=== PATIENT | female | born 1970 | race Caucasian/White ===

== ENCOUNTER 2022-08-30 13:07 | Observation (INO) | payer MEDICARE, OTHER ==
[2022-08-30 13:42] LABS: Basophils # (A) 0.1 k/uL (0-0.2); Basophils % (A) 1 %; Eosinophils # (A) 0.2 k/uL (0-0.7); Eosinophils % (A) 3 %; HCT 43.7 % (34.0-46.0); HGB 14.6 gm/dL (11.4-16.0); Lymphocytes # (A) 2.3 k/uL (1.0-4.8); Lymphocytes % (A) 34 %; MCH 30.8 pg (25.0-35.0); MCHC 33.4 g/dL (31.0-37.0); MCV 92.2 fL (80.0-100.0); Mean Platelet Volume 8.7; Monocytes # (A) 0.4 k/uL (0-1.0); Monocytes % (A) 6 %; Neutrophils # (A) 3.7 k/uL (1.3-7.7); Neutrophils % (A) 54 %; Platelet Count 404 k/uL (150-450); RBC 4.74 m/uL (3.80-5.40); WBC 6.9 k/uL (3.8-10.6)
--- NOTE | 2022-08-30 13:42 | ED ---
Chest Pain HPI - General Chief Complaint: Chest Pain Stated Complaint: Chest Pain Time Seen by Provider: 08/30/22 13:21 Source: patient, EMS, RN notes reviewed Mode of arrival: EMS Limitations: no limitations - History of Present Illness Initial Comments: 51-year-old female presents emergency Department with chief complaint of chest pain, shortness breath. Patient states that she's had PE in the past. She has an outburst currently. She states her lungs feel very heavy. Patient denies any history of hypertension hyperlipidemia and she does have history of asthma. No history of CHF she does see cardiology. No diaphoretic episodes. Patient states pain started around 2 AM. - Related Data Home Medications Medication Instructions Recorded Confirmed ALPRAZolam [Xanax] 0.5 mg PO BID 08/30/22 08/30/22 Albuterol Inhaler [Ventolin Hfa 2 puff INHALATION RT-Q6H PRN 08/30/22 08/30/22 Inhaler] Apixaban [Eliquis] 5 mg PO BID 08/30/22 08/30/22 Omeprazole 20 mg PO DAILY PRN 08/30/22 08/30/22 Pregabalin [Lyrica] 100 mg PO BID 08/30/22 08/30/22 Allergies Allergy/AdvReac Type Severity Reaction Status Date / Time No Known Allergies Allergy Verified 08/30/22 13:45 Review of Systems ROS Statement: Those systems with pertinent positive or pertinent negative responses have been documented in the HPI. ROS Other: All systems not noted in ROS Statement are negative. EKG Findings - EKG Comments: EKG Findings:: EKG performed at 13:16 sinus rhythm rate of 80 VA 133/79 QT/QTC 350/381 - EKG Results: EKG: interpreted by [facility] Past Medical History Past Medical History: CVA/TIA, Pulmonary Embolus (PE) Additional Past Medical History / Comment(s): CVA age 29 Past Surgical History: Section, Cholecystectomy, Tubal Ligation Additional Past Surgical History / Comment(s): X3 Past Psychological History: Anxiety, Depression Smoking Status: Former smoker Past Alcohol Use History: None Reported Past Drug Use History: None Reported General Exam Limitations: no limitations General appearance: alert, in no apparent distress Head exam: Present: atraumatic, normocephalic, normal inspection Eye exam: Present: normal appearance, PERRL, EOMI. Absent: scleral icterus, conjunctival injection, periorbital swelling ENT exam: Present: normal exam, mucous membranes moist Neck exam: Present: normal inspection, full ROM. Absent: tenderness, meningismus, lymphadenopathy Respiratory exam: Present: normal lung sounds bilaterally. Absent: respiratory distress, wheezes, rales, rhonchi, stridor Cardiovascular Exam: Present: regular rate, normal rhythm, normal heart sounds. Absent: systolic murmur, diastolic murmur, rubs, gallop, clicks GI/Abdominal exam: Present: soft, normal bowel sounds. Absent: distended, tenderness, guarding, rebound, rigid Back exam: Absent: CVA tenderness (R), CVA tenderness (L) Neurological exam: Present: alert Skin exam: Present: warm, dry, intact, normal color. Absent: rash Course Vital Signs 08/30/22 08/30/22 13:13 14:43 Temperature 98.1 F Pulse Rate 87 75 Respiratory 20 18 Rate Blood Pressure 121/85 125/75 O2 Sat by Pulse 93 L 95 Oximetry Chest Pain MDM - MDM Was pt. sent in by a medical professional or institution (, PA, HYBRID TECHNOLOGIST, urgent care, hospital, or long term...) When possible be specific @ -[No] Did you speak to anyone other than the patient for history (EMS, parent, family, police, friend...)? What history was obtained from this source @ -[No] Did you review nursing and triage notes (agree or disagree)? Why? @ -[I reviewed and agree with nursing and triage notes] Were old charts reviewed (outside hosp., previous admission, EMS record, old EKG, old radiological studies, urgent care reports/EKG's, long term records)? Report findings @ -[Reviewed prior laboratory studies] Differential Diagnosis (chest pain, altered mental status, abdominal pain women, abdominal pain men, vaginal bleeding, weakness, fever, dyspnea, syncope, headache, dizziness, GI bleed, back pain, seizure, CVA, palpatations, mental health, musculoskeletal)? @ -[Differential Chest Pain: Stable Angina, Unstable Angina, STEMI, NSTEMI Aortic Dissection, Pneumothorax, Musculoskeletal, Esophageal Spasm GERD, Cholecystitis, Pancreatitis, Zoster, this is not meant to be an all-inclusive list. able] EKG interpreted by me (3pts min.). @ -[As above] X-rays interpreted by me (1pt min.). @ -[Chest x-ray shows no acute process] CT interpreted by me (1pt min.). @ -[None done] U/S interpreted by me (1pt. min.). @ -[None done] What testing was considered but not performed or refused? (CT, X-rays, U/S, labs)? Why? @ -[None] What meds were considered but not given or refused? Why? @ -[None] Did you discuss the management of the patient with other professionals (professionals i.e. , PA, HYBRID TECHNOLOGIST, lab, RT, psych nurse, psychotherapist social worker, dining room attendant cafeteria, teacher, chief security officer, case worker)? Give summary @ -[ sheet for admission for cardiac rule out] Was smoking cessation discussed for >3mins.? @ -[No] Was critical care preformed (if so, how long)? @ -[No] Were there social determinants of health that impacted care today? How? (Homeles sness, low income, unemployed, alcoholism, drug addiction, transportation, low edu. Level, literacy, decrease access to med. care, assisted, rehab)? @ -[No] Was there de-escalation of care discussed even if they declined (Discuss DNR or withdrawal of care, Hospice)? DNR status @ -[No] What co-morbidities impacted this encounter? (DM, HTN, Smoking, COPD, CAD, Cancer, CVA, ARF, Chemo, Hep., AIDS, mental health diagnosis, sleep apnea, morbid obesity)? @ -[Asthma, PE] Was patient admitted / discharged? Hospital course, mention meds given and route, prescriptions, significant lab abnormalities, going to OR and other pertinent info. @ -[Admitted patient presented for chest pain or shortness of his negative patient will be admitted for cardiac rule out including repeat troponin, cardiology evaluation patient is an alcohol is not be anticoagulated with heparin ] Undiagnosed new problem with uncertain prognosis? @ -[No] Drug Therapy requiring intensive monitoring for toxicity (Heparin, Nitro, Insulin, Cardizem)? @ -[No] Were any procedures done? @ -[No] Diagnosis/symptom? @ -[Chest pain] Acute, or Chronic, or Acute on Chronic? @ -[Acute] Uncomplicated (without systemic symptoms) or Complicated (systemic symptoms)? @ -[uncomplicated ] Side effects of treatment? @ -[No] Exacerbation, Progression, or Severe Exacerbation? @ -[No] Poses a threat to life or bodily function? How? (Chest pain, [place], [place], pneumonia, PE, COPD, DKA, ARF, appy, cholecystitis, CVA, Diverticulitis, Homicidal, Suicidal, threat to staff... and all critical care pts) @ -[Yes patient presented for chest pain has risk for cardiac arrest] Disposition Clinical Impression: Chest pain Disposition: ADMITTED IP TO THIS HOSP Referrals: Zuleyma Douglas MD [Primary Care Provider] - 1-2 days Time of Disposition: 15:34
[2022-08-30 13:54] LABS: ALT 43 U/L (4-34); African American GFR (CKD) 73 (>60 ml/min/1.73 sqM); Albumin 4.6 g/dL (3.5-5.0); Anion Gap 11 mmol/L; Blood Urea Nitrogen 14 mg/dL (7-17); Calcium 9.7 mg/dL (8.4-10.2); Carbon Dioxide 19 mmol/L (22-30); Chloride 107 mmol/L (98-107); Glucose 121 mg/dL (74-99); Magnesium 2.1 mg/dL (1.6-2.3); Non-African American GFR(CKD) 63 (>60 ml/min/1.73 sqM); Sodium 137 mmol/L (137-145); Total Bilirubin 1.2 mg/dL (0.2-1.3); Total Protein 7.8 g/dL (6.3-8.2)
--- NOTE | 2022-08-30 13:56 | XR ---
EXAMINATION TYPE: XR chest 2V DATE OF EXAM: 08/30/2022 1:45 PM COMPARISON: None TECHNIQUE: XR chest 2V Frontal and lateral views of the chest. CLINICAL INDICATION:Female, 51 years old with history of Chest Pain; FINDINGS: Lungs/Pleura: There is no evidence of pleural effusion, focal consolidation, or pneumothorax. Senesc ent parenchymal change. Pulmonary vascularity: Unremarkable. Heart/mediastinum: Cardiomediastinal silhouette is unremarkable. Musculoskeletal: No acute osseous pathology. IMPRESSION: No acute cardiopulmonary disease/process.
[2022-08-30 14:00] LABS: Prothrombin Time 10.7 sec (9.0-12.0)
[2022-08-30 14:02] LABS: AST 41 U/L (14-36); Alkaline Phosphatase 83 U/L (38-126); Potassium 4.7 mmol/L (3.5-5.1)
[2022-08-30] MEDS ORDERED: NITROGLYCERIN SL TABS 0.4 MG TAB SUBLINGUAL PRN (15:34)
[2022-08-30] MEDS ORDERED: ASPIRIN 81 MG PO STA (15:34)
[2022-08-30] MEDS ORDERED: ALBUTEROL NEBULIZED 2.5 MG/3 ML INHALATION PRN (16:03)
[2022-08-30] MEDS ORDERED: HEPARIN SODIUM 1,000 UN/ML (10ML VL) IV PRN (16:11)
[2022-08-30] MEDS ORDERED: HEPARIN SOD,PORK IN 0.45% NACL 25,000 UNIT in 0.45% NACL 1 250ML.BAG IV SCH (16:15)
--- NOTE | 2022-08-30 19:13 | P.HPIM ---
History of Present Illness This is a pleasant 51 years old female with past medical history of pulmonary embolism and CVA/TIA Patient presents because of chest pain that started 3:00 in the morning while she was playing her videogame, she describes pain as bedside that started suddenly and now however she rated as 4/10 in severity and is been associated with exertional dyspnea and mild dry cough she denies any other GI urinary or neurological symptoms to me She denies smoking alcohol or illicit drugs. Her PCP is Dr. Douglas About 1.5 years she had a negative stress test. Vitals stable and patient's saturation 95% room air. She has unremarkable CBC, BMP, INR. D-dimer is -0.32 Troponin negative 1 less than 0.012. AST and ALT mildly elevated at 41 and 43 respectively while bilirubin within the reference range at 1.2. Chest x-ray: No acute process. EKG: Normal sinus rhythm at [address]-T changes Review of Systems Review of systems CONSTITUTIONAL: No fever, no malaise, no fatigue. HEENT: No recent visual problems or hearing problems. Denied any sore throat. CARDIOVASCULAR: No orthopnea, PND, no palpitations, no syncope. PULMONARY: No shortness of breath, no cough, no hemoptysis. GASTROINTESTINAL: No diarrhea, no nausea, no vomiting, no abdominal pain. Normoactive bowel sounds. NEUROLOGICAL: No headaches, no weakness, no numbness. HEMATOLOGICAL: Denies any bleeding or petechiae. GENITOURINARY: Denies any burning micturition, frequency, or urgency. MUSCULOSKELETAL/RHEUMATOLOGICAL: Denies any joint pain, swelling, or any muscle pain. ENDOCRINE: Denies any polyuria or polydipsia. Past Medical History Past Medical History: CVA/TIA, Pulmonary Embolus (PE) Additional Past Medical History / Comment(s): CVA age 29 Past Surgical History: Section, Cholecystectomy, Tubal Ligation Additional Past Surgical History / Comment(s): X3 Past Psychological History: Anxiety, Depression Smoking Status: Former smoker Past Alcohol Use History: None Reported Past Drug Use History: None Reported Medications and Allergies Home Medications Medication Instructions Recorded Confirmed Type ALPRAZolam [Xanax] 0.5 mg PO BID 08/30/22 08/30/22 History Albuterol Inhaler [Ventolin Hfa 2 puff INHALATION RT-Q6H PRN 08/30/22 08/30/22 History Inhaler] Apixaban [Eliquis] 5 mg PO BID 08/30/22 08/30/22 History Omeprazole 20 mg PO DAILY PRN 08/30/22 08/30/22 History Pregabalin [Lyrica] 100 mg PO BID 08/30/22 08/30/22 History Allergies Allergy/AdvReac Type Severity Reaction Status Date / Time No Known Allergies Allergy Verified 08/30/22 13:45 Physical Exam Vitals: Vital Signs Temp Pulse Resp BP Pulse Ox 08/30/22 14:43 75 18 125/75 95 08/30/22 13:13 98.1 F 87 20 121/85 93 L Intake and Output 08/30/22 08/30/22 08/30/22 06:59 14:59 22:59 Other: Weight 104.326 kg -GENERAL: The patient is alert and oriented x3, not in any acute distress. Obese HEENT: Pupils are round and equally reacting to light. EOMI. No scleral icterus. No conjunctival pallor. Normocephalic, atraumatic. No pharyngeal erythema. No thyromegaly. CARDIOVASCULAR: S1 and S2 present. No murmurs, rubs, or gallops. PULMONARY: Chest is clear to auscultation, no wheezing , no crackles. ABDOMEN: Soft, nontender, nondistended, normoactive bowel sounds. No palpable organomegaly. MUSCULOSKELETAL: No joint swelling or deformity. EXTREMITIES: No cyanosis, clubbing, or pedal edema. NEUROLOGICAL: Gross neurological examination did not reveal any focal deficits. SKIN: No rashes. no petechiae. Results CBC & Chem 7: 08/30/22 13:32 08/30/22 13:32 Labs: Abnormal Lab Results - Last 24 Hours (Table) 08/30/22 Range/Units 13:32 Carbon Dioxide 19 L (22-30) mmol/L Glucose 121 H (74-99) mg/dL AST 41 H (14-36) U/L ALT 43 H (4-34) U/L Assessment and Plan Assessment: Chest pain, rule out cardiac causes History of pulmonary embolism History of CVA/TIA Morbid obesity with BMI of 40.7 Plan: We'll do serial troponin and Check echocardiogram Cardiology consult Labs and medication were reviewed.. Continue same treatment. Continue with symptomatic treatment. Resume home medication. Monitor labs and vitals. DVT and GI prophylaxis. Further recommendations as per clinical course of the patient DVT prophylaxis: Subcutaneous heparin GI Prophylaxis: Pepcid PT/OT: Pending Prognosis is guarded
[2022-08-30] MEDS: ALPRAZolam 0.5 MG TAB PO PRN (22:17)
[2022-08-30] MEDS: PREGABALIN 100 MG CAP PO SCH (22:17)
[2022-08-31 04:09] VITALS: RESP 16
[2022-08-31 07:27] LABS: INR 0.9 (<1.2); Prothrombin Time 9.9 sec (9.0-12.0)
[2022-08-31 07:54] VITALS: BP 100/67; PULSE 76; TEMP 98.2
[2022-08-31] MEDS ORDERED: METOPROLOL TARTRATE 12.5 MG TAB PO SCH (09:00)
[2022-08-31] MEDS ORDERED: ASPIRIN 325 MG TAB PO SCH (09:00)
[2022-08-31] MEDS ORDERED: APIXABAN 5 MG TAB PO SCH (09:00)
[2022-08-31] MEDS: PREGABALIN 100 MG CAP PO SCH (10:06)
[2022-08-31] MEDS: ALPRAZolam 0.5 MG TAB PO PRN (10:09)
[2022-08-31 11:14] LABS: Basophils # (A) 0.12 X 10*3/uL (0.00-0.10); Basophils % (A) 1.2 %; Eosinophils # (A) 0.29 X 10*3/uL (0.04-0.35); HCT 41.6 % (37.2-46.3); Lymphocytes # (A) 4.46 X 10*3/uL (0.90-5.00); Lymphocytes % (A) 45.4 %; MCH 29.1 pg (27.0-32.0); MCHC 31.3 d/dL (32.0-37.0); MCV 93.3 FL (80.0-97.0); Mean Platelet Volume 11.5 FL (9.5-12.2); Monocytes # (A) 0.83 X 10*3/uL (0.20-1.00); Monocytes % (A) 8.4 %; NRBC Per 100 WBC 0 X 10*3/uL (0.00-0.01); Neutrophils # (A) 4.12 X 10*3/uL (1.80-7.70); Neutrophils % (A) 41.9 %; Platelet Count 378 X 10*3/uL (140-440); RBC 4.46 X 10*6/uL (4.10-5.20); RDW 13.1 % (11.5-14.5); WBC 9.83 X 10*3/uL (4.50-10.00)
--- NOTE | 2022-08-31 11:25 | P.CRDCN ---
History of Present Illness Consult date: 08/31/22 Consult reason: chest pain History of present illness: History of present illness: This is a 51-year-old female patient of Dr. 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 We have been asked to evaluate the patient for chest pain. Patient states that she developed chest pain that really started in her back and on the left side then went across her chest to the right side and eventually seemed to be all over her chest. EKG sinus rhythm with no acute ST changes Chest x-ray: No acute findings Troponin negative 3. CBC unremarkable. D-dimer 0.32. CMP unremarkable. ProBNP less than 20, potassium 4.7 magnesium 2.1. Home cardiac medications: Eliquis 5 mg twice daily, Lopressor 12.5 mg twice daily Review Of Systems: At the time of my evaluation: Constitutional: No fever, no chills. No weakness, fatigue or lethargy. EENT: No headache. No dizziness. Lungs: No shortness of breath, cough, no sputum production. No wheezing. Cardiovascular: No chest pain, no lower extremity edema. No palpitations. No paroxysmal nocturnal dyspnea. No orthopnea. No lightheadedness or dizziness. No syncopal episodes. Abdominal: No abdominal pain. No nausea, vomiting. No diarrhea. No constipation. No bloody or tarry stools. Genitourinary: No dysuria.. No urinary retention. Musculoskeletal: No myalgias. No muscle weakness, no frequent falls. No back pain. No neck pain. Integumentary: No wounds. No rash. No unusual bruising. Neurologic: No aphasia. No facial droop. No change in mentation. No head injury. No headache. Physical examination: Gen: This is a [ ] VS: reviewed HEENT: Head is atraumatic, normocephalic. Pupils equal, round. Sclerae is anicteric. NECK: Supple. No JVD. . LUNGS: Clear to auscultation. No wheezes or rhonchi. No intercostal retractions . HEART: Regular rate and rhythm. No murmur. ABDOMEN: Soft No tenderness. EXTREMITIES: No pedal edema. No calf tenderness. NEUROLOGICAL: Patient is awake, alert and oriented x3. Assessment: Musculoskeletal chest pain History of ruptured brain aneurysm Pulmonary embolism Plan: Discontinue heparin drip Start patient on metoprolol tartrate 12.5 mg twice daily Patient is cleared for discharge from cardiology my follow-up with Dr. Mckeon in 1 week. Thank you kindly for this consultation. Nurse practitioner note has been reviewed, I agree with documented findings and plan of care. Patient was seen and examined. Past Medical History Past Medical History: CVA/TIA, Pulmonary Embolus (PE) Additional Past Medical History / Comment(s): CVA age 29 History of Any Multi-Drug Resistant Organisms: None Reported Past Surgical History: Section, Cholecystectomy, Tubal Ligation Additional Past Surgical History / Comment(s): X3 Past Psychological History: Anxiety, Depression Smoking Status: Former smoker, Vaper Past Alcohol Use History: None Reported Past Drug Use History: None Reported Medications and Allergies Home Medications Medication Instructions Recorded Confirmed Type ALPRAZolam [Xanax] 0.5 mg PO BID 08/30/22 08/30/22 History Albuterol Inhaler [Ventolin Hfa 2 puff INHALATION RT-Q6H PRN 08/30/22 08/30/22 History Inhaler] Apixaban [Eliquis] 5 mg PO BID 08/30/22 08/30/22 History Omeprazole 20 mg PO DAILY PRN 08/30/22 08/30/22 History Pregabalin [Lyrica] 100 mg PO BID 08/30/22 08/30/22 History Metoprolol Tartrate [Lopressor] 12.5 mg PO BID #60 tab 08/31/22 Rx Nitroglycerin Sl Tabs [Nitrostat] 0.4 mg SUBLINGUAL Q5M PRN #30 tab 08/31/22 Rx Allergies Allergy/AdvReac Type Severity Reaction Status Date / Time No Known Allergies Allergy Verified 08/30/22 13:45 Physical Exam Vitals: Vital Signs Temp Pulse Pulse Resp BP BP Pulse Ox 08/31/22 07:10 98.2 F 76 16 100/67 94 L 08/31/22 02:00 98.1 F 82 16 111/66 96 08/30/22 21:00 97.9 F 87 18 124/66 94 L 08/30/22 17:37 71 18 121/81 94 L 08/30/22 14:43 75 18 125/75 95 08/30/22 13:13 98.1 F 87 20 121/85 93 L Intake and Output 08/30/22 08/31/22 08/31/22 22:59 06:59 14:59 Intake Total 76.333 Balance 76.333 Intake: Intake, IV Titration 76.333 Amount Heparin Sod,Pork in 0.45% 76.333 NaCl 25,000 unit In 0.45 % NaCl 1 250ml.bag @ 9. 585 UNITS/KG/HR 10 mls/hr IV .Q24H [facility] Rx#: [id number] Other: # Voids 0 1 Weight 104.326 kg Results 08/30/22 13:32 08/30/22 13:32 Cardiac Enzymes 08/30/22 08/30/22 08/30/22 Range/Units 13:32 13:32 16:00 AST 41 H (14-36) U/L Troponin I <0.012 <0.012 (0.000-0.034) ng/mL 08/30/22 Range/Units 18:37 AST (14-36) U/L Troponin I <0.012 (0.000-0.034) ng/mL Coagulation 08/30/22 08/30/22 08/31/22 Range/Units 13:32 23:55 06:49 PT 10.7 9.9 (9.0-12.0) sec APTT 24.0 30.9 H (22.0-30.0) sec 08/31/22 Range/Units 06:49 PT (9.0-12.0) sec APTT 56.9 H (22.0-30.0) sec CBC 08/30/22 Range/Units 13:32 WBC 6.9 (3.8-10.6) k/uL RBC 4.74 (3.80-5.40) m/uL Hgb 14.6 (11.4-16.0) gm/dL Hct 43.7 (34.0-46.0) % Plt Count 404 (150-450) k/uL Comprehensive Metabolic Panel 08/30/22 Range/Units 13:32 Sodium 137 (137-145) mmol/L Potassium 4.7 (3.5-5.1) mmol/L Chloride 107 (98-107) mmol/L Carbon Dioxide 19 L (22-30) mmol/L BUN 14 (7-17) mg/dL Creatinine 1.03 (0.52-1.04) mg/dL Glucose 121 H (74-99) mg/dL Calcium 9.7 (8.4-10.2) mg/dL AST 41 H (14-36) U/L ALT 43 H (4-34) U/L Alkaline Phosphatase 83 (38-126) U/L Total Protein 7.8 (6.3-8.2) g/dL Albumin 4.6 (3.5-5.0) g/dL Current Medications Generic Name Dose Route Start Last Admin Trade Name Freq PRN Reason Stop Dose Admin Albuterol Sulfate 2.5 mg 08/30/22 16:03 Albuterol Nebulized 2.5 Mg/3 Ml INHALATION RT-Q6H PRN Shortness Of Breath Alprazolam 0.5 mg 08/30/22 16:03 08/30/22 22:17 Alprazolam 0.5 Mg Tab PO 0.5 mg BID PRN Administration Anxiety Aspirin 325 mg 08/31/22 09:00 Aspirin 325 Mg Tab PO DAILY [facility] Heparin Sodium (Porcine) 0 unit 08/30/22 16:11 08/31/22 01:18 Heparin Sodium 1,000 Un/Ml (10ml Vl) IV 4,000 unit PER PROTOCOL PRN Administration Low PTT Protocol Heparin Sodium/Sodium Chloride 250 mls @ 10 mls/hr 08/30/22 16:15 08/31/22 01:12 25,000 unit/ Sodium Chloride IV 12.585 units/kg/hr .Q24H [facility] 13.129 mls/hr Titration Protocol 9.585 UNITS/KG/HR Nitroglycerin 0.4 mg 08/30/22 15:34 Nitroglycerin Sl Tabs 0.4 Mg Tab SUBLINGUAL Q5M PRN Chest Pain Pregabalin 100 mg 08/30/22 21:00 08/30/22 22:17 Pregabalin 100 Mg Cap PO 100 mg BID [facility] Administration Intake and Output 08/30/22 08/31/22 08/31/22 22:59 06:59 14:59 Intake Total 76.333 Balance 76.333 Intake: Intake, IV Titration 76.333 Amount Heparin Sod,Pork in 0.45% 76.333 NaCl 25,000 unit In 0.45 % NaCl 1 250ml.bag @ 9. 585 UNITS/KG/HR 10 mls/hr IV .Q24H [facility] Rx#: [id number] Other: # Voids 0 1 Weight 104.326 kg 08/30/22 13:32 08/30/22 13:32
[2022-08-31 13:23] LABS: Chol/HDL Ratio 2.82 Ratio; LDL Cholesterol,Calculated 89.5 mg/dL (0.0-131.0)
--- NOTE | 2022-09-01 00:18 | P.DS ---
Providers Date of admission: 08/30/22 15:44 Attending physician: Hussain Arguelles MD Consults: 08/30/22 15:34 Consult Physician Urgent Consulting Provider: Chadwick Torre Consult Reason/Comments: chest pain Do you want consulting provider notified?: Yes Primary care physician: Zuleyma Douglas Hospital Course: Diagnoses: Chest pain, cardiac causes ruled out. Just been completely resolved upon discharge. D-dimer negative History of pulmonary embolism History of CVA/TIA Morbid obesity with BMI of 40.7 Hospital course: This is a pleasant 51 years old female with past medical history of pulmonary embolism and CVA/TIA Patient presents because of chest pain that started 3:00 in the morning while she was playing her videogame, she describes pain as bedside that started suddenly and now however she rated as 4/10 in severity and is been associated with exertional dyspnea and mild dry cough she denies any other GI urinary or neurological symptoms to me. D-dimer is -0.32. Also patient followed by nut sheller machine operator and divided metoprolol and cleared her for discharge to follow up with her nut sheller machine operator Dr. Mckeon in 1 week and she agrees Patient denies any other symptoms upon discharge and wants to go home Patient was cleared for discharge by nut sheller machine operator Problems and management plan were discussed with the patient and he verbalized understanding and acceptance Patient was found stable and can be discharged home in guarded prognosis however he needs follow-up as an outpatient. Patient was instructed to follow up with PCP Dr. Douglas within one week and patient agrees Patient was instructed to follow up with Dr. Mckeon in 1 week and she agrees to call and make appointment Physical exam Gen: patient is a AAOx3, no distress CVS: S1-S2, RRR, no murmur Lungs: B/L CTA, no wheezing Abdomen: soft, no distention, no tenderness, positive bowel sounds Extremity: no leg edema or induration Time spent more than 35 minutes Plan - Discharge Summary New Discharge Prescriptions: New Metoprolol Tartrate [Lopressor] 12.5 mg PO BID #60 tab Nitroglycerin Sl Tabs [Nitrostat] 0.4 mg SUBLINGUAL Q5M PRN #30 tab PRN Reason: Chest Pain Continue ALPRAZolam [Xanax] 0.5 mg PO BID Albuterol Inhaler [Ventolin Hfa Inhaler] 2 puff INHALATION RT-Q6H PRN PRN Reason: Shortness Of Breath Pregabalin [Lyrica] 100 mg PO BID Apixaban [Eliquis] 5 mg PO BID Omeprazole 20 mg PO DAILY PRN PRN Reason: ACID REFLUX Discharge Medication List ALPRAZolam [Xanax] 0.5 mg PO BID 08/30/22 [History] Albuterol Inhaler [Ventolin Hfa Inhaler] 2 puff INHALATION RT-Q6H PRN 08/30/22 [History] Apixaban [Eliquis] 5 mg PO BID 08/30/22 [History] Omeprazole 20 mg PO DAILY PRN 08/30/22 [History] Pregabalin [Lyrica] 100 mg PO BID 08/30/22 [History] Metoprolol Tartrate [Lopressor] 12.5 mg PO BID #60 tab 08/31/22 [Rx] Nitroglycerin Sl Tabs [Nitrostat] 0.4 mg SUBLINGUAL Q5M PRN #30 tab 08/31/22 [Rx] Follow up Appointment(s)/Referral(s): Erik Mckeon DO [STAFF PHYSICIAN] - 09/07/22 10:30 am Zuleyma Douglas MD [Primary Care Provider] - 1-2 days Patient Instructions/Handouts: Chest Pain (DC) Activity/Diet/Wound Care/Special Instructions: heart healthy diet activity is restricted till you see your doctor Discharge Disposition: HOME SELF-CARE
== END 2022-08-31 10:40 | disposition home or self-care (01) ==
LOC: EC 13:07 → 6NMEDSUR 15:44
PROVIDERS: ADMIT Internal Medicine; ATTEND Internal Medicine
DX: R07.89 Other chest pain (principal); J45.909 Unspecified asthma, uncomplicated; R74.01 Elevation of levels of liver transaminase levels; F32.A Depression, unspecified; F41.9 Anxiety disorder, unspecified; E66.01 Morbid (severe) obesity due to excess calories; Z68.41 Body mass index [BMI] 40.0-44.9, adult; Z79.01 Long term (current) use of anticoagulants; Z79.899 Other long term (current) drug therapy; Z86.73 Personal history of transient ischemic attack (TIA), and cerebral infarction without residual deficits; Z90.49 Acquired absence of other specified parts of digestive tract; Z86.711 Personal history of pulmonary embolism; Z98.891 History of uterine scar from previous surgery; Z98.51 Tubal ligation status; Z87.891 Personal history of nicotine dependence
CPT/HCPCS: 96376; 96366 ×3; 96365; 99285; 36415; 93005; 85379; 83880; 80061; 80053; 83735; 84484; 85025 ×2; 85610 ×2; 85730 ×2; 71046; G0378 ×2; J1644 ×2

== ENCOUNTER → 2023-07-08 | Outpatient (CLI) | payer MEDICARE, OTHER | END | disposition home or self-care (01) | LOC: LABWHC1 14:33 | PROVIDERS: ATTEND Internal Medicine | DX: Z53.9 Procedure and treatment not carried out, unspecified reason (principal) ==

== ENCOUNTER 2023-11-02 14:50 | Emergency (ER) | payer MEDICARE, OTHER ==
[2023-11-02 15:00] VITALS: RESP 18; TEMP 98.4
--- NOTE | 2023-11-02 16:15 | ED ---
Back Pain HPI - General Chief Complaint: Back Pain/Injury Stated Complaint: L flank pain Time Seen by Provider: 11/02/23 16:12 Source: patient, EMS, RN notes reviewed Limitations: no limitations - History of Present Illness Initial Comments: 53-year-old female presenting with left upper quadrant abdominal pain x 3 days. States she has had this intermittently in the past, however over the past day pain has become constant. Pain is dull and begins underneath left breast and r adiates to the back. Pain is worse with deep inspiration and with movement. Denies fever, chills, change in bowel habits, redness of breath, chest pain, urinary symptoms, vomiting. Patient is tolerating orals well. Patient does have a history of pancreatitis many years ago. Denies improvement or exacerbation of symptoms with food. Patient is currently on blood thinners. Denies any trauma or injury. - Related Data Home Medications Medication Instructions Recorded Confirmed ALPRAZolam [Xanax] 0.5 mg PO BID 08/30/22 08/30/22 Albuterol Inhaler [Ventolin Hfa 2 puff INHALATION RT-Q6H PRN 08/30/22 08/30/22 Inhaler] Apixaban [Eliquis] 5 mg PO BID 08/30/22 08/30/22 Omeprazole 20 mg PO DAILY PRN 08/30/22 08/30/22 Pregabalin [Lyrica] 100 mg PO BID 08/30/22 08/30/22 Previous Rx's Medication Instructions Recorded Metoprolol Tartrate [Lopressor] 12.5 mg PO BID #60 tab 08/31/22 Nitroglycerin Sl Tabs [Nitrostat] 0.4 mg SUBLINGUAL Q5M PRN #30 tab 08/31/22 Lidocaine 5% Patch [Lidoderm 5% 1 patch TOPICAL DAILY 7 Days #7 11/02/23 Patch] patch methocarbamoL [Robaxin] 500 mg PO TID PRN #15 tab 11/02/23 Allergies Allergy/AdvReac Type Severity Reaction Status Date / Time No Known Allergies Allergy Verified 08/30/22 13:45 Review of Systems ROS Statement: Those systems with pertinent positive or pertinent negative responses have been documented in the HPI. ROS Other: All systems not noted in ROS Statement are negative. Past Medical History Past Medical History: CVA/TIA, Pulmonary Embolus (PE) Additional Past Medical History / Comment(s): CVA age 29 History of Any Multi-Drug Resistant Organisms: None Reported Past Surgical History: Section, Cholecystectomy, Tubal Ligation Additional Past Surgical History / Comment(s): X3 Past Psychological History: Anxiety, Depression Smoking Status: Former smoker, Vaper Past Alcohol Use History: None Reported Past Drug Use History: None Reported General Exam Limitations: no limitations General appearance: alert, in no apparent distress Head exam: Present: atraumatic, normocephalic, normal inspection Eye exam: Present: normal appearance, PERRL, EOMI. Absent: scleral icterus, co njunctival injection, periorbital swelling ENT exam: Present: normal exam, normal oropharynx, mucous membranes moist Neck exam: Present: normal inspection. Absent: tenderness, meningismus, lymphadenopathy Respiratory exam: Present: normal lung sounds bilaterally. Absent: respiratory distress, wheezes, rales, rhonchi, stridor Cardiovascular Exam: Present: regular rate, normal rhythm, normal heart sounds. Absent: systolic murmur, diastolic murmur, rubs, gallop, clicks GI/Abdominal exam: Present: soft, tenderness (left lateral rib reproducible tenderness), normal bowel sounds. Absent: distended, guarding, rebound, rigid Extremities exam: Present: normal inspection, full ROM, normal capillary refill. Absent: tenderness, pedal edema, joint swelling, calf tenderness Back exam: Present: normal inspection. Absent: CVA tenderness (R), CVA tenderness (L) Neurological exam: Present: alert, oriented X3 Psychiatric exam: Present: normal affect, normal mood Skin exam: Present: warm, dry, intact, normal color. Absent: rash Course Vital Signs 11/02/23 11/02/23 14:51 18:46 Temperature 98.4 F Pulse Rate 99 78 Respiratory 18 18 Rate Blood Pressure 144/79 143/99 O2 Sat by Pulse 95 97 Oximetry Medical Decision Making - Medical Decision Making Was pt. sent in by a medical professional or institution (, PA, ACCESS SERVICE REPRESENTATIVE, urgent care, hospital, or [facility]...) When possible be specific @ -No Did you speak to anyone other than the patient for history (EMS, parent, family, police, friend...)? What history was obtained from this source @ -No Did you review nursing and triage notes (agree or disagree)? Why? @ -I reviewed and agree with nursing and triage notes Were old charts reviewed (outside hosp., previous admission, EMS record, old EKG, old radiological studies, urgent care reports/EKG's, [facility] records)? Report findings @ -No old charts were reviewed Differential Diagnosis (chest pain, altered mental status, abdominal pain women, abdominal pain men, vaginal bleeding, weakness, fever, dyspnea, syncope, headache, dizziness, GI bleed, back pain, seizure, CVA, palpatations, mental health, musculoskeletal)? @ -Differential Abdominal Pain Women: Appendicitis, Cholecystitis, diverticulosis, ischemic bowel, pancreatitis, hepatitis, UTI, gastroenteritis, AAA, incarcerated hernia, bowel obstruction, constipation, inflammatory bowel, hepatitis, peptic ulcer disease, splenic infarction, perforated viscus, vulvitis, ovarian torsion, PID, kidney stone, placenta abruption, this is not meant to be an all-inclusive list EKG interpreted by me (3pts min.). @ -None X-rays interpreted by me (1pt min.). @ -Chest x-ray revealed no acute process CT interpreted by me (1pt min.). @ -None done U/S interpreted by me (1pt. min.). @ -None done What testing was considered but not performed or refused? (CT, X-rays, U/S, labs)? Why? @ -CT of abdomen not performed due to lab work unremarkable, no abdominal tenderness or sign of acute abdomen What meds were considered but not given or refused? Why? @ -None Did you discuss the management of the patient with other professionals (professionals i.e. , PA, ACCESS SERVICE REPRESENTATIVE, lab, RT, psych nurse, social contact worker, fire management technician, teacher, coastal/harbor defense officer, caser in)? Give summary @ -No Was smoking cessation discussed for >3mins.? @ -No Was critical care preformed (if so, how long)? @ -No Were there social determinants of health that impacted care today? How? (Homelessness, low income, unemployed, alcoholism, drug addiction, transportation, low edu. Level, literacy, decrease access to med. care, correction, rehab)? @ -No Was there de-escalation of care discussed even if they declined (Discuss DNR or withdrawal of care, Hospice)? DNR status @ -No What co-morbidities impacted this encounter? (DM, HTN, Smoking, COPD, CAD, Cancer, CVA, ARF, Chemo, Hep., AIDS, mental health diagnosis, sleep apnea, morbid obesity)? @ -None Was patient admitted / discharged? Hospital course, mention meds given and route, prescriptions, significant lab abnormalities, going to OR and other pertinent info. @ -Patient was discharged. Patient was seen and evaluated for left upper quadrant abdominal pain for 3 days. No red flag symptoms. Vitals within normal limits. Upon examination, there is no abdominal tenderness, however there is reproducible point tenderness to palpation in the left lateral ribs. Patient denies trauma or injury but admits pain with deep inspiration. Lab work including CBC, CMP, lipase, lactic acid is unremarkable. Chest x-ray is negative for acute process. Urine is unremarkable. Findings discussed with patient. Symptoms appear to be musculoskeletal at this time. Supportive care discussed. Patient discharged with muscle relaxer and lidocaine patches. Return precautions discussed and patient is agreeable to plan. Case was discussed with my ED attending Dr. Yao. Patient discharged in stable condition. Undiagnosed new problem with uncertain prognosis? @ -No Drug Therapy requiring intensive monitoring for toxicity (Heparin, Nitro, Insulin, Cardizem)? @ -No Were any procedures done? @ -No Diagnosis/symptom? @ -Left lateral rib pain Acute, or Chronic, or Acute on Chronic? @ -Acute Uncomplicated (without systemic symptoms) or Complicated (systemic symptoms)? @ -Uncomplicated Side effects of treatment? @ -No Exacerbation, Progression, or Severe Exacerbation? @ -No Poses a threat to life or bodily function? How? (Chest pain, [place], [place], pneumonia, PE, COPD, DKA, ARF, appy, cholecystitis, CVA, Diverticulitis, Homicidal, Suicidal, threat to staff... and all critical care pts) @ -No - Lab Data Result diagrams: 11/02/23 16:25 11/02/23 16:25 Lab Results 11/02/23 11/02/23 11/02/23 Range/Units 16:25 16:25 16:25 WBC 9.7 (3.8-10.6) k/uL RBC 4.55 (3.80-5.40) m/uL Hgb 14.0 (11.4-16.0) gm/dL Hct 41.7 (34.0-46.0) % MCV 91.6 (80.0-100.0) fL MCH 30.8 (25.0-35.0) pg MCHC 33.6 (31.0-37.0) g/dL RDW 13.3 (11.5-15.5) % Plt Count 410 (150-450) k/uL MPV 8.1 Neutrophils % 58 % Lymphocytes % 33 % Monocytes % 5 % Eosinophils % 2 % Basophils % 1 % Neutrophils # 5.6 (1.3-7.7) k/uL Lymphocytes # 3.2 (1.0-4.8) k/uL Monocytes # 0.5 (0-1.0) k/uL Eosinophils # 0.2 (0-0.7) k/uL Basophils # 0.1 (0-0.2) k/uL Sodium 139 (137-145) mmol/L Potassium 4.5 (3.5-5.1) mmol/L Chloride 106 (98-107) mmol/L Carbon Dioxide 22 (22-30) mmol/L Anion Gap 11 mmol/L BUN 14 (7-17) mg/dL Creatinine 0.91 (0.52-1.04) mg/dL Est GFR (CKD-EPI)AfAm 83 (>60 ml/min/1.73 sqM) Est GFR (CKD-EPI)NonAf 72 (>60 ml/min/1.73 sqM) Glucose 114 H (74-99) mg/dL Plasma Lactic Acid Michael 1.1 (0.7-2.0) mmol/L Calcium 9.9 (8.4-10.2) mg/dL Total Bilirubin 0.8 (0.2-1.3) mg/dL AST 63 H (14-36) U/L ALT 53 H (4-34) U/L Alkaline Phosphatase 68 (38-126) U/L Total Protein 7.3 (6.3-8.2) g/dL Albumin 4.5 (3.5-5.0) g/dL Lipase 282 (23-300) U/L Urine Color Urine Appearance (Clear) Urine pH (5.0-8.0) Ur Specific [place] (1.001-1.035) Urine Protein (Negative) Urine Glucose (UA) (Negative) Urine Ketones (Negative) Urine Blood (Negative) Urine Nitrite (Negative) Urine Bilirubin (Negative) Urine Urobilinogen (<2.0) mg/dL Ur Leukocyte Esterase (Negative) 11/02/23 Range/Units 16:25 WBC (3.8-10.6) k/uL RBC (3.80-5.40) m/uL Hgb (11.4-16.0) gm/dL Hct (34.0-46.0) % MCV (80.0-100.0) fL MCH (25.0-35.0) pg MCHC (31.0-37.0) g/dL RDW (11.5-15.5) % Plt Count (150-450) k/uL MPV Neutrophils % % Lymphocytes % % Monocytes % % Eosinophils % % Basophils % % Neutrophils # (1.3-7.7) k/uL Lymphocytes # (1.0-4.8) k/uL Monocytes # (0-1.0) k/uL Eosinophils # (0-0.7) k/uL Basophils # (0-0.2) k/uL Sodium (137-145) mmol/L Potassium (3.5-5.1) mmol/L Chloride (98-107) mmol/L Carbon Dioxide (22-30) mmol/L Anion Gap mmol/L BUN (7-17) mg/dL Creatinine (0.52-1.04) mg/dL Est GFR (CKD-EPI)AfAm (>60 ml/min/1.73 sqM) Est GFR (CKD-EPI)NonAf (>60 ml/min/1.73 sqM) Glucose (74-99) mg/dL Plasma Lactic Acid Michael (0.7-2.0) mmol/L Calcium (8.4-10.2) mg/dL Total Bilirubin (0.2-1.3) mg/dL AST (14-36) U/L ALT (4-34) U/L Alkaline Phosphatase (38-126) U/L Total Protein (6.3-8.2) g/dL Albumin (3.5-5.0) g/dL Lipase (23-300) U/L Urine Color Colorless Urine Appearance Clear (Clear) Urine pH 6.0 (5.0-8.0) Ur Specific [place] 1.004 (1.001-1.035) Urine Protein Negative (Negative) Urine Glucose (UA) Negative (Negative) Urine Ketones Negative (Negative) Urine Blood Negative (Negative) Urine Nitrite Negative (Negative) Urine Bilirubin Negative (Negative) Urine Urobilinogen <2.0 (<2.0) mg/dL Ur Leukocyte Esterase Negative (Negative) Disposition Clinical Impression: Rib pain on left side Disposition: HOME SELF-CARE Condition: Stable Instructions (If sedation given, give patient instructions): Muscle Strain (ED) Additional Instructions: Take muscle relaxer and use lidocaine patches as needed for pain. Please return to the Emergency Department if symptoms worsen or any other concerns. Prescriptions: Lidocaine 5% Patch [Lidoderm 5% Patch] 1 patch TOPICAL DAILY 7 Days #7 patch methocarbamoL [Robaxin] 500 mg PO TID PRN #15 tab PRN Reason: muscle spasms Is patient prescribed a controlled substance at d/c from ED?: No Referrals: Zuleyma Douglas MD [Primary Care Provider] - 1-2 days Time of Disposition: 18:37
[2023-11-02 16:30] LABS: Basophils # (A) 0.1 k/uL (0-0.2); Basophils % (A) 1 %; Eosinophils # (A) 0.2 k/uL (0-0.7); Eosinophils % (A) 2 %; HCT 41.7 % (34.0-46.0); Lymphocytes # (A) 3.2 k/uL (1.0-4.8); Lymphocytes % (A) 33 %; MCH 30.8 pg (25.0-35.0); MCHC 33.6 g/dL (31.0-37.0); MCV 91.6 fL (80.0-100.0); Mean Platelet Volume 8.1; Monocytes # (A) 0.5 k/uL (0-1.0); Monocytes % (A) 5 %; Neutrophils # (A) 5.6 k/uL (1.3-7.7); Neutrophils % (A) 58 %; Platelet Count 410 k/uL (150-450); RBC 4.55 m/uL (3.80-5.40); RDW 13.3 % (11.5-15.5); WBC 9.7 k/uL (3.8-10.6)
[2023-11-02 16:32] LABS: Appearance,Urine Clear (Clear); Bilirubin,Urine Negative (Negative); Blood,Urine Negative (Negative); Color,Urine Colorless; Glucose,Urine (UA) Negative (Negative); Ketones,Urine Negative (Negative); Leukocyte Esterase,Urine Negative (Negative); Nitrite,Urine Negative (Negative); Protein,Urine Negative (Negative); Specific Gravity,Urine 1.004 (1.001-1.035); Urobilinogen,Urine <2.0 mg/dL (<2.0)
[2023-11-02 16:46] LABS: ALT 53 U/L (4-34); African American GFR (CKD) 83 (>60 ml/min/1.73 sqM); Albumin 4.5 g/dL (3.5-5.0); Anion Gap 11 mmol/L; Blood Urea Nitrogen 14 mg/dL (7-17); Calcium 9.9 mg/dL (8.4-10.2); Carbon Dioxide 22 mmol/L (22-30); Chloride 106 mmol/L (98-107); Glucose 114 mg/dL (74-99); Lipase 282 U/L (23-300); Non-African American GFR(CKD) 72 (>60 ml/min/1.73 sqM); Sodium 139 mmol/L (137-145); Total Bilirubin 0.8 mg/dL (0.2-1.3); Total Protein 7.3 g/dL (6.3-8.2)
--- NOTE | 2023-11-02 16:58 | XR ---
EXAMINATION TYPE: XR chest 2V DATE OF EXAM: 11/02/2023 4:40 PM CLINICAL INDICATION: Female, 53 years old with history of cough; COMPARISON: Chest radiographs from 08/30/2022 TECHNIQUE: XR chest 2V Frontal view of the chest. FINDINGS: Lungs/Pleura: There is no evidence of pleural effusion, focal consolidation, or pneumothorax. Pulmonary vascularity: Unremarkable. Heart/mediastinum: Cardiomediastinal silhouette is unremarkable. Musculoskeletal: No acute osseous pathology. Other findings: None IMPRESSION: No acute cardiopulmonary disease/process.
[2023-11-02 17:03] LABS: Potassium 4.5 mmol/L (3.5-5.1)
[2023-11-02 17:04] LABS: AST 63 U/L (14-36); Alkaline Phosphatase 68 U/L (38-126)
[2023-11-02] MEDS: CYCLOBENZAPRINE 10 MG TAB PO STA (18:42)
[2023-11-02 18:47] VITALS: BP 143/99; PULSE 78
== END 2023-11-02 18:47 | disposition home or self-care (01) ==
LOC: EC 14:50
CPT/HCPCS: 36415; 71046; 80053; 81003; 83605; 83690; 85025; 99283